=== PATIENT | male | born 1960 | race Caucasian/White ===

== ENCOUNTER 2020-04-26 08:03 | Outpatient (CLI) | payer BC ==
[~2020-04-26] VITALS: Ht 167.6 cm; Wt 78.9 kg
[~2020-04-26 08:03] MED LIST: ECOTRIN81 MG PO; IMDUR ER TAB 3030 MG PO; LIPITOR TAB 2020 MG PO; LOPRESSOR50 MG PO; PLAVIX 75 MG TA75 MG PO; PLETAL 100 MG100 MG PO; ROBAXIN500 MG PO
[2020-04-26 08:50] LABS: HEMOGLOBIN 14.9 gm/dl (14.0-17.5); RED BLOOD COUNT 4.7 M/UL (4.20-5.50); WHITE BLOOD COUNT 10.9 K/UL (4.5-11.0)
[2020-04-26 09:14] LABS: BUN/CREATININE RATIO 14 (0-10)
[2020-04-27 02:47] LABS: HEMOGLOBIN 14.1 gm/dl (14.0-17.5); RED BLOOD COUNT 4.54 M/UL (4.20-5.50); WHITE BLOOD COUNT 11.8 K/UL (4.5-11.0)
[2020-04-27 02:57] LABS: BUN/CREATININE RATIO 14 (0-10)
== END 2020-04-27 11:20 | disposition home or self-care (01) ==
LOC: CATH 08:03 → PROG CARE 14:09 → CATH 04-27 11:20
PROVIDERS: Internal Medicine Cardiovascular Disease
DX: I25.119 Atherosclerotic heart disease of native coronary artery with unspecified angina pectoris (principal); E11.51 Type 2 diabetes mellitus with diabetic peripheral angiopathy without gangrene; I10 Essential (primary) hypertension; F17.290 Nicotine dependence, other tobacco product, uncomplicated; I25.2 Old myocardial infarction; E78.00 Pure hypercholesterolemia, unspecified; F41.9 Anxiety disorder, unspecified; F32.9 Major depressive disorder, single episode, unspecified; Z95.5 Presence of coronary angioplasty implant and graft; Z86.73 Personal history of transient ischemic attack (TIA), and cerebral infarction without residual deficits; Z79.02 Long term (current) use of antithrombotics/antiplatelets; Z79.82 Long term (current) use of aspirin; Z79.899 Other long term (current) drug therapy
CPT/HCPCS: 36415; 71045; 80048; 85025; 85347; 85610; 93005; 99152; 99153; C1725; C1769; C1874; C1887; C1894; C9600; J0461; J1644; J2250; J2550; J3010; J3246; J7030; Q9967